=== PATIENT | male | born 1985 | race Caucasian/White ===

== ENCOUNTER 2025-02-27 14:54 | Emergency (ER) | payer SELFPAY ==
[2025-02-27 15:02] VITALS: BP 162/100
[2025-02-27 15:24] LABS: Hematocrit 44.8 % (39.0-52.0); Hemoglobin 14.7 g/dL (13.0-18.0); Mean Corp Hgb Conc. 32.8 g/dL (33.0-37.0); Mean Corpuscular Volume 82.7 fL (80.0-94.0); Nucleated Red Blood Cells % 0 % (-); Platelet Count 199 10^3/uL (130-400); Red Cell Dist. Width 12.5 % (11.5-14.5)
[2025-02-27 15:45] LABS: ALT (SGPT) 28 U/L (0-50); AST (SGOT) 21 U/L (17-59); Albumin 4.8 g/dl (3.5-5.0); Alkaline Phosphatase 57 U/L (38-126); Blood Urea Nitrogen 21 mg/dl (9-20); Calcium 9.4 mg/dl (8.4-10.2); Carbon Dioxide 26 mmol/L (22-30); Chloride 103 mmol/L (98-107); Glucose 110 mg/dl (70-99); Potassium 3.7 mmol/L (3.5-5.1); Sodium 134 mmol/L (135-145); Total Protein 8.0 g/dl (6.3-8.2); eGFR > 60.00
[2025-02-27 15:56] LABS: Troponin I < 0.012 ng/ml
--- NOTE | 2025-02-27 18:46 | ED.GENMED ---
History of Present Illness
General
Chief Complaint: Chest Pain
Time Seen by Provider: 02/27/25 18:46
History of Present Illness
History of Present Illness:
FOCUSED PAST MEDICAL HISTORY
- No significant past medical history
REVIEW OF OLD RECORDS
- No old records available for review in [facility]
Note:
CHIEF COMPLAINT(S)
Sudden onset of heaviness in legs and shoulders with chest tightness.
HISTORY OF PRESENT ILLNESS
The patient, a 39-year-old male, presented to the emergency room with a chief complaint of sudden onset of heaviness in the legs and shoulders followed by chest tightness. The symptoms began approximately at 2:30 PM today. He describes the sensation
in his shoulders as a heaviness and felt as if he was about to faint, although he did not lose consciousness. Additionally, he felt an increase in body temperature that did not result in sweating. The patient reports that similar symptoms occurred
about three to four years ago when he actually fainted, and it was attributed to a panic attack at that time. The patient expressed concern given the similarity to his previous experience but mentioned he did not exhibit other coronary disease
symptoms and confirmed no known history of coronary artery disease.
REVIEW OF SYSTEMS
- Cardiovascular: Chest tightness reported, no reported history of coronary disease.
- Neurological: Heaviness in legs and shoulders, no fainting during this episode but did faint in a similar incident three to four years ago.
- General: Increased body temperature noticed.
PHYSICAL EXAM
- General: Well appearing in no distress
- HEENT: Moist oral mucosa
- Cardiovascular: No murmurs, normal heart rate, regular rhythm, No chest wall tenderness
- Pulmonary: No respiratory distress, breath sounds are clear and equal
- Abdomen: Soft with no peritoneal signs, no tenderness
- Neurologic: Excellent strength all extremities, no coordination deficits
- Psychiatric: Appropriate mental status, normal insight and judgement
- Skin: No rash, no lesions
- Lower extremities: Strong DP pulses bilaterally, no muscle tenderness
PROBLEM LIST
Acute:
- Sudden onset chest tightness
- Heaviness in legs and shoulders
PLAN
- Perform an additional round of blood testing to rule out acute cardiac events, such as myocardial infarction, given the recency of symptoms.
- Monitor for any changes while awaiting test results.
- Discharge the patient if blood tests remain negative with follow-up advice provided.
DIFFERENTIAL DIAGNOSIS
The Differential Diagnosis includes, in no particular order and is not limited to:
1. Acute myocardial infarction
2. Panic attack
3. Pulmonary embolism
4. Anxiety disorder
5. Transient ischemic attack
6. Hypertensive crisis
7. Tachyarrhythmia
8. Pericarditis
9. Myocarditis
10. Aortic dissection
Disposition:
SUMMARY OF ENCOUNTER
The patient, a 39-year-old male, presented to the emergency department with sudden onset of heaviness in the legs and shoulders accompanied by chest tightness. Initial consideration included acute cardiac events. After evaluation and blood testing,
results were negative for myocardial infarction. The patients blood pressure was noted to be high at 160/100 mmHg, but no immediate treatment was initiated in the emergency department. A recommendation was made to follow up with a primary care
physician to assess and manage blood pressure and to consider cardiology consultation for further evaluation of potential coronary disease.
DISPOSITION
Discharge.
PLAN
Advised to follow up with a primary care physician to manage elevated blood pressure and assess cardiovascular risk factors. Recommended consideration of cardiology consultation for further evaluation.
PATIENT EDUCATION AND COUNSELING
Discussed the importance of monitoring blood pressure and the potential need for long-term management if hypertension is confirmed. Explained that presenting symptoms were not consistent with acute myocardial infarction, as confirmed by negative
test results.
FOLLOW-UP INSTRUCTIONS
Please follow up with your primary care doctor as soon as possible for blood pressure management and a possible labor economist referral.
MEDICATION RECONCILIATION
No medications were administered or prescribed during this encounter.
MEDICAL DECISION MAKING
-Number and Complexity of Problems Addressed: Sudden onset of chest tightness and heaviness in the limbs. DDx includes acute myocardial infarction, panic attack, pulmonary embolism, anxiety disorder, transient ischemic attack, hypertensive crisis,
tachyarrhythmia, pericarditis, myocarditis, and aortic dissection.
-Data:
Category 1: Lab tests were ordered and reviewed to rule out myocardial infarction.
Category 3: Patient management discussion handled internally, with no consultation with external providers documented.
-Risk: Consideration of Admission/Observation: Escalation of care including admission/observation was considered given the complexity and risk of the patients presenting complaint, exam findings, and/or their underlying comorbidities. However,
ultimately, I feel the patient is safe for outpatient management with close follow up. Reasoning: Work-up reassuring, does not reveal any acute life/organ threatening processes, patients symptoms well controlled upon reevaluation, reexamination is
reassuring, vitals are stable, patient agreeable with discharge, reliable for follow-up.
DIAGNOSIS
1. Chest pain
2. Resolved leg pain
EKG
- Sinus 70, nonspecific ST abnormality, no old to compare
LABS
- CBC and chemistries unremarkable, troponin less than 0.012 x 2
UPDATE
- The patient is very well-appearing on reassessment, second troponin normal
- I informed patient of high blood pressure readings here and recommend he follows up with PMD
Phy Exam
Physical Exam
Physical Exam:
See HPI
Scores
Heart Score for Chest Pain Patients
STEMI patient?: Not applicable
Course
Orders/Labs/Results
Orders:
Orders
02/27/25 14:55
Electrocardiogram (*1) Urgent
Reason for Study: Chest Pain
EKG- Treatment ONCE
02/27/25 15:08
CBC/With Diff [Complete Blood Count/With Diff] Urgent
CMP [Comprehensive Metabolic Panel] Urgent
Troponin I Urgent
02/27/25 18:57
Troponin I Urgent
Abnormal Lab Results
02/27/25
15:08
MCHC 32.8 L g/dL
(33.0-37.0)
MPV 10.6 H fL
(7.4-10.4)
Sodium 134 L mmol/L
(135-145)
BUN 21 H mg/dl
(9-20)
Glucose 110 H mg/dl
(70-99)
02/27/25 15:08
02/27/25 15:08
Vital Signs
Initial and Last Documented VS:
Initial Vital Signs
Temp Pulse Resp BP Pulse Ox
36.7 C 72 12 162/100 100
02/27/25 15:02 02/27/25 15:02 02/27/25 15:02 02/27/25 15:02 02/27/25 15:02
Last Documented Vital Signs
Temp Pulse Resp BP Pulse Ox
36.7 C 72 12 162/100 100
02/27/25 15:02 02/27/25 15:02 02/27/25 15:02 02/27/25 15:02 02/27/25 18:47
*Pulse Oximetry
SaO2: 100
Oxygen Mode of Delivery: Room air
Patient hypoxic: no
*Critical Care Note
Total Time (30-74mins, 75-104mins- exclusive of procedures): Not Applicable
ED Attending Note
-
Portions of this chart may have been created with voice recognition software.� Occasional wrong word or��sound alike� substitutions may have occurred due to the inherent limitations of voice recognition software.
Discharge Plan
Departure
Prescriptions:
No Action
No Current Medications
0
Referrals:
Barrington Green DO [Family Provider, General]
Interventions
Interventions:
*Risk Screen - Suicide Last Done: 02/27/25 15:02
*General Assessment Last Done: 02/27/25 15:02
*Neglect/Abuse Screening Last Done: 02/27/25 15:02
*ED COVID-19 Vaccine History Last Done: 02/27/25 15:02
*ED Influenza Vaccine History Last Done: 02/27/25 15:02
Discharge Date and Time
Print Language: GREEK
[2025-02-27 19:34] LABS: Troponin I < 0.012 ng/ml
== END 2025-02-27 20:25 | disposition home or self-care (01) ==
LOC: EMR 14:54
PROVIDERS: Student in an Organized Health Care Education/Training Program; EMERGENCY PHYSICIAN Emergency Medicine; FAMILY PHYSICIAN Family Medicine
DX: R07.89 Other chest pain (principal)
CPT/HCPCS: 99284; 80053; 84484; 85025; 93005